=== PATIENT | male | born 1995 | race African-American/Black ===

== ENCOUNTER 2017-04-19 17:07 | Emergency (ER) | payer SELFPAY | END 2017-04-19 18:33 | disposition home or self-care (01) | LOC: ERS 17:07 | DX: S39.012A Strain of muscle, fascia and tendon of lower back, initial encounter (principal); V89.2XXA Person injured in unspecified motor-vehicle accident, traffic, initial encounter | CPT/HCPCS: 99283 ==

== ENCOUNTER 2017-07-09 17:28 | Emergency (ER) | payer OTHER, SELFPAY ==
[2017-07-09] MEDS ORDERED: Lidocaine 1% PF 5 ML VIAL ONE (18:20)
--- NOTE | 2017-07-09 19:05 | RAD ---
RADIOGRAPH RIGHT FIFTH DIGIT TWO VIEWS: Date: 07-09-17 Time: 5:51 p.m. History: 21-year-old male with traumatic deformity of the fifth digit. Comparison: None. FINDINGS: The fifth middle phalanx is dislocated posteriorly and slightly to the ulnar side, relative to the he ad of the fifth proximal phalanx. There is a tiny, less than 1 mm calcific density abutting the head of the proximal phalanx on the lateral view, consistent with a tiny displaced chip fracture fragment off of the base of the middle phalanx. IMPRESSION: 1. Acute, traumatic dislocation of the right fifth proximal interphalangeal joint. 2. Associated tiny chip fracture. POS: [facility]
--- NOTE | 2017-07-09 19:44 | RAD ---
RADIOGRAPH RIGHT FIFTH DIGIT TWO VIEWS: Date: 07-09-17 Time: 7:00 p.m. History: 20-year-old male status post reduction of acute, traumatic, dislocation of the fifth PIP. Comparison: 07-09-17 at 5:51 p.m. FINDINGS: The PIP is now located. IMPRESSION: Successful reduction of the acute, traumatic, dislocation of the right fifth proximal interphalangeal joint. POS: [facility]
== END 2017-07-09 18:18 | disposition home or self-care (01) ==
LOC: ERS 17:28
DX: S63.286A Dislocation of proximal interphalangeal joint of right little finger, initial encounter (principal); X58.XXXA Exposure to other specified factors, initial encounter; Y93.67 Activity, basketball
CPT/HCPCS: 26770; J2001

== ENCOUNTER 2022-01-02 12:59 | Emergency (ER) | payer OTHER, SELFPAY ==
[2022-01-02] MEDS ORDERED: Ketorolac Tromethamine 30 MG/ML VIAL ONE (14:51)
== END 2022-01-02 15:45 | disposition home or self-care (01) ==
LOC: ERS 12:59
DX: S06.9X9A Unspecified intracranial injury with loss of consciousness of unspecified duration, initial encounter (principal); S40.211A Abrasion of right shoulder, initial encounter; M54.2 Cervicalgia; V43.52XA Car driver injured in collision with other type car in traffic accident, initial encounter; W22.11XA Striking against or struck by driver side automobile airbag, initial encounter
CPT/HCPCS: 70450; 72125; 96372; J1885